=== PATIENT | male | born 1995 | race Caucasian/White ===

== ENCOUNTER 2018-02-14 15:45 | Emergency (ER) | payer MEDICAID, OTHER ==
[2018-02-14] MEDS: FAMOTIDINE 20 MG INJ IV (16:50)
[2018-02-14] MEDS: SOD CHLORIDE 0.9% 1,000 ML IV (16:50)
[2018-02-14 17:09] LABS: ADD MAN DIFF? NO
[2018-02-14 17:16] LABS: WHITE BLOOD COUNT 9.6 10^3/ul (4.8-10.8)
[2018-02-14 17:16] LABS: BASOPHIL # 0.1 10^3/ul (0.0-0.1); BASOPHILS % 0.5 % (0.0-2.0); EOSINOPHILS % 0.1 % (0.0-7.0); LYMPHOCYTES # 1.3 10^3/ul (0.8-2.9); MEAN CORPUSCULAR HEMOGLOBIN 26.8 pg (29.0-33.0); MEAN CORPUSCULAR HGB CONC 33.3 g/dl (32.0-37.0); MEAN CORPUSCULAR VOLUME 80.4 fl (82.0-101.0); MEAN PLATELET VOLUME 12.3 fl (7.4-10.4); MONOCYTE # 0.7 10^3/ul (0.3-0.9); MONOCYTES % 7.6 % (0.0-11.0); NEUTROPHIL # 7.4 10^3/ul (1.6-7.5); NEUTROPHILS % 77.5 % (39.0-77.0); PLATELET COUNT 222 10^3/UL (140-415); RED BLOOD COUNT 5.97 10^6/ul (4.70-6.10); RED CELL DISTRIBUTION WIDTH 13.4 % (11.5-14.5)
[2018-02-14 17:29] LABS: ADD UMIC YES; UR ASCORBIC ACID NEGATIVE (NEGATIVE); UR BILIRUBIN (Dip) NEGATIVE (NEGATIVE); UR BLOOD (Dip) NEGATIVE (NEGATIVE); UR CLARITY CLEAR (CLEAR); UR COLOR YELLOW (YELLOW); UR GLUCOSE (Dip) NEGATIVE (NEGATIVE); UR KETONES (Dip) 2+ mg/dL (NEGATIVE); UR LEUKOCYTE ESTERASE (Dip) NEGATIVE Leu/ul (NEGATIVE); UR MUCUS MANY /HPF (NONE SEEN); UR NITRITE (Dip) NEGATIVE (NEGATIVE); UR RBC 1 /HPF (0-5); UR TOTAL PROTEIN (Dip) 1+ mg/dl (NEGATIVE); UR UROBILINOGEN (Dip) NEGATIVE (NEGATIVE); UR WBC 1 /HPF (0-5)
[2018-02-14 17:59] LABS: ALANINE AMINOTRANSFERASE 51 IU/L (13-69); ALBUMIN 5.5 g/dl (3.3-4.9); ALBUMIN/GLOBULIN RATIO 1.61; ALKALINE PHOSPHATASE 81 IU/L (42-121); ANION GAP 15 (5-13); ASPARTATE AMINO TRANSFERASE 39 IU/L (15-46); BILIRUBIN,INDIRECT 0.7 mg/dl (0-1.1); BILIRUBIN,TOTAL 0.7 mg/dl (0.2-1.3); BLOOD UREA NITROGEN 18 mg/dl (7-20); CARBON DIOXIDE 28 mmol/L (21-31); CHLORIDE 99 mmol/L (97-110); CREATININE 0.99 mg/dl (0.61-1.24); Estimated GFR > 60 mL/min (>60); GLUCOSE 132 mg/dl (70-220); LIPASE 42 U/L (23-300); POTASSIUM 3.6 mmol/L (3.5-5.1); SODIUM 142 mmol/L (135-144); TOTAL PROTEIN 8.9 g/dl (6.1-8.1)
[2018-02-14 18:09] LABS: TROPONIN-I < 0.012 ng/ml (0.000-0.120)
== END 2018-02-14 20:00 | disposition home or self-care (01) ==
LOC: FTE 15:45
DX: R10.10 Upper abdominal pain, unspecified (principal); R07.9 Chest pain, unspecified
CPT/HCPCS: 36415; 71045; 76705; 80053; 81001; 83690; 84484; 85025; 87430; 87880; 93005; 96374; 99285-25

== ENCOUNTER 2018-02-15 10:53 | Emergency (ER) | payer MEDICAID ==
[2018-02-15 11:44] LABS: URINE PH (Dip) POC 7.5 (5.0-8.5)
[2018-02-15 11:44] LABS: URINE BLOOD (Dip) POC Negative (NEGATIVE); URINE GLUCOSE (Dip) POC Negative (NEGATIVE); URINE KETONES (Dip) POC Negative (NEGATIVE); URINE LEUKOCYTE EST (Dip) POC Negative (NEGATIVE); URINE NITRITE (Dip) POC Negative (NEGATIVE); URINE TOTAL PROTEIN POC Negative (NEGATIVE)
[2018-02-18 00:06] LABS: URINE BLOOD (Dip) POC Negative (NEGATIVE); URINE GLUCOSE (Dip) POC Negative (NEGATIVE); URINE KETONES (Dip) POC Negative (NEGATIVE); URINE LEUKOCYTE EST (Dip) POC Negative (NEGATIVE); URINE NITRITE (Dip) POC Negative (NEGATIVE); URINE TOTAL PROTEIN POC Negative (NEGATIVE)
[2018-02-18 00:06] LABS: URINE PH (Dip) POC 7.5 (5.0-8.5)
== END 2018-02-15 13:25 | disposition home or self-care (01) ==
LOC: FTE 10:53
DX: N50.812 Left testicular pain (principal)
CPT/HCPCS: 76870; 81003; 99284-25